=== PATIENT | male | born 1960 | race Caucasian/White ===

== ENCOUNTER → 2024-09-12 | Outpatient (CLI) | payer MEDICARE, SELFPAY ==
[2024-09-12 11:15] LABS: Basophils # (Auto) 0.1 Thou/mm3 (0.0-0.2); Basophils % (Auto) 1 % (0-2.5); Eosinophils # (Auto) 0.3 Thou/mm3 (0.0-0.5); Eosinophils % (Auto) 4 % (0-10); Hematocrit 42.5 % (41.0-53.0); Hemoglobin 13.8 g/dL (13.5-16.0); Immature Granulocytes % (Auto) 0 % (0-0); Immature Granulocytes Auto 0.02 Thou/mm3 (0.00-0.00); Lymphocytes # (Auto) 2.1 Thou/mm3 (1.0-4.8); Lymphocytes % (Auto) 25 % (10-50); Mean Corpuscular HGB Conc 32.5 g/dl (31.0-37.0); Mean Corpuscular Hemoglobin 26.5 pg (25.0-35.0); Mean Corpuscular Volume 82 fL (80-100); Monocytes # (Auto) 0.8 Thou/mm3 (0.0-0.8); Monocytes % (Auto) 10 % (0-12); Neutrophils # (Auto) 4.9 Thou/mm3 (1.8-7.7); Neutrophils % (Auto) 60 % (37-80); Nucleated Red Blood Cell % 0 /100 WBC (0); Platelet Count 286 Thou/mm3 (140-440); RDW Standard Deviation 47.4 fL (35.1-43.9); White Blood Count 8.2 Thou/mm3 (3.8-10.6)
[2024-09-12 11:26] LABS: Glucose Estimated Average 117 mg/dL (80-131); Hemoglobin A1C 5.7 % Hgb (4.8-6.0)
[2024-09-12 11:32] LABS: Alanine Aminotransferase 22 U/L (10-49); Albumin, Serum 4.8 gm/dL (3.4-4.8); Alkaline Phosphatase 165 U/L (46-116); Anion Gap 5 (7-16); Aspartate Amino Transferase 11 U/L (0-34); BUN/Creatinine Ratio 13 Ratio (12-20); Bilirubin,Total 1.4 mg/dL (0.3-1.2); Blood Urea Nitrogen 14 mg/dL (9-23); Calcium 9.5 mg/dL (8.3-10.6); Calcium (Corrected) 9.5 mg/dL (8.5-10.1); Carbon Dioxide 29.8 mMol/L (20.0-31.0); Cardiac Risk Estimate 2.3 RATIO (4.0-6.7); Chloride 102 mMol/L (98-107); Cholesterol 110 mg/dL (132-200); Creatinine (Component) 1.1 mg/dL (0.6-1.3); Globulin 2.4 gm/dL (2.3-3.5); Glucose 116 mg/dL (74-106); HDL Cholesterol 48 mg/dL (40-60); LDL Cholesterol,Calculated 42 mg/dL (0-130); Osmolality,Calculated 275 (275-295); Potassium 3.9 mMol/L (3.4-5.1); Sodium 137 mMol/L (136-145); Total Protein 7.2 gm/dL (5.7-8.2); Triglycerides 102 mg/dL (30-150); eGFR > 60 See Note
[2024-09-12 12:06] LABS: Collection Type, Urine Clean Catch
[2024-09-12 12:31] LABS: Bilirubin,Urine Negative (Negative); Blood,Urine Negative (Negative); Clarity,Urine Clear (Clear/Hazy); Color,Urine Yellow (Lt Yel-Yel); Glucose, Urine 4+ (Negative); Ketones,Urine Negative (Negative); Leukocyte Esterase,Urine Negative (Negative); Nitrite,Urine Negative (Negative); Protein,Urine Trace (Neg - Trace); RBC,Urine 4 /hpf (0-3); Specific Gravity,Urine 1.037 (1.001-1.035); Squamous Epithelial Cell,Urine < 1 /hpf (0-5); Urobilinogen,Urine Negative mg/dL (0.0-1.0); WBC,Urine 2 /hpf (0-5)
[2024-09-12 12:38] LABS: Creatinine MALB Rnd Ur 148 mg/dL (30-125); Microalbumin Creat Ratio 5 mg/gCrea (<30); Microalbumin, Random Urine 7 mg/L (0-300)
== END | disposition home or self-care (01) ==
PROVIDERS: PCP Internal Medicine; Referring Provider Internal Medicine; Visit Provider Internal Medicine
DX: E11.9 Type 2 diabetes mellitus without complications (principal); I10 Essential (primary) hypertension; E78.5 Hyperlipidemia, unspecified
CPT/HCPCS: 36415; 80053; 80061; 81001; 82043; 82570; 83036; 85025

== ENCOUNTER → 2024-10-25 | Outpatient (CLI) | payer MEDICARE, SELFPAY ==
--- NOTE | 2024-10-25 09:06 | EKG_ITS ---
[facility], [place] Test Date: 2024-10-25 Pat Name: SHEREEN LEMUS Department: Room: - Gender: Male [employer]ambling [employer]er: SONDRA : 1960 Requested By: Dexter Hirsch Order Number: [id number] Reading MD: Dexter Hirsch Measurements Intervals [place] Rate: 66 P: 21 ID: [id number] QRS: -60 QRSD: 128 T: 55 QT: 435 QTc: 457 Interpretive Statements SINUS RHYTHM RIGHT BUNDLE BRANCH BLOCK LEFT ANTERIOR FASCICULAR BLOCK POSSIBLE SEPTAL MYOCARDIAL INFARCTION , PROBABLY OLD Compared to ECG 11/11/2023 14:16:59 Right bundle-branch block now present Left anterior fascicular block now present Myocardial infarct finding now present Intraventricular conduction delay no longer present /[id number]
[2024-10-25 09:44] LABS: Glucose,Fasting 133 mg/dL (74-106)
== END | disposition home or self-care (01) ==
PROVIDERS: PCP Internal Medicine; Referring Provider Ophthalmology; Visit Provider Ophthalmology
DX: Z01.818 Encounter for other preprocedural examination (principal)
CPT/HCPCS: 36415; 82947; 93005

== ENCOUNTER → 2024-12-21 | Outpatient (CLI) | payer MEDICARE, SELFPAY ==
[2024-12-21 16:18] LABS: Prostate Specific Antigen 1.98 ng/mL (0-4.00)
== END | disposition home or self-care (01) ==
LOC: COPL 15:21
PROVIDERS: PCP Internal Medicine; Referring Provider Urology; Visit Provider Urology
DX: N40.1 Benign prostatic hyperplasia with lower urinary tract symptoms (principal)
CPT/HCPCS: 36415; 84153

== ENCOUNTER → 2024-12-28 | Outpatient (BNVA) | payer MEDICARE, SELFPAY | END | disposition home or self-care (01) | PROVIDERS: PCP Internal Medicine; Referring Provider Internal Medicine; Visit Provider Urology | DX: N40.0 Benign prostatic hyperplasia without lower urinary tract symptoms (principal); E66.9 Obesity, unspecified; Z68.36 Body mass index [BMI] 36.0-36.9, adult; I10 Essential (primary) hypertension; E78.5 Hyperlipidemia, unspecified; N52.9 Male erectile dysfunction, unspecified; Z87.440 Personal history of urinary (tract) infections; E11.9 Type 2 diabetes mellitus without complications; E03.9 Hypothyroidism, unspecified | CPT/HCPCS: 81003; 99212; G0463 ==

== ENCOUNTER → 2025-02-08 | Outpatient (CLI) | payer MEDICARE, SELFPAY ==
[2025-02-08 12:13] LABS: Eosinophils % (Auto) 4 % (0-10); Hemoglobin 16.1 g/dL (13.5-16.0); Lymphocytes % (Auto) 16 % (10-50); Mean Corpuscular Hemoglobin 29.3 pg (25.0-35.0); Mean Corpuscular Volume 84 fL (80-100); Monocytes % (Auto) 8 % (0-12); Neutrophils % (Auto) 71 % (37-80); Platelet Count 265 Thou/mm3 (140-440); RDW Standard Deviation 43.4 fL (35.1-43.9); White Blood Count 8.7 Thou/mm3 (3.8-10.6)
[2025-02-08 12:14] LABS: Basophils # (Auto) 0.1 Thou/mm3 (0.0-0.2); Basophils % (Auto) 1 % (0-2.5); Eosinophils # (Auto) 0.3 Thou/mm3 (0.0-0.5); Immature Granulocytes % (Auto) 0 % (0-0); Immature Granulocytes Auto 0.03 Thou/mm3 (0.00-0.00); Lymphocytes # (Auto) 1.4 Thou/mm3 (1.0-4.8); Monocytes # (Auto) 0.7 Thou/mm3 (0.0-0.8); Neutrophils # (Auto) 6.2 Thou/mm3 (1.8-7.7); Nucleated Red Blood Cell % 0 /100 WBC (0)
[2025-02-08 12:26] LABS: Glucose Estimated Average 123 mg/dL (80-131); Hemoglobin A1C 5.9 % Hgb (4.8-6.0)
[2025-02-08 12:29] LABS: Alanine Aminotransferase 23 U/L (10-49); Albumin, Serum 4.6 gm/dL (3.4-4.8); Albumin/Globulin Ratio 1.8 (1.2-2.2); Alkaline Phosphatase 169 U/L (46-116); Anion Gap 9 (7-16); Aspartate Amino Transferase 19 U/L (0-34); BUN/Creatinine Ratio 15 Ratio (12-20); Bilirubin,Total 1.8 mg/dL (0.3-1.2); Blood Urea Nitrogen 15 mg/dL (9-23); Calcium 9.5 mg/dL (8.3-10.6); Calcium (Corrected) 9.5 mg/dL (8.5-10.1); Carbon Dioxide 27.2 mMol/L (20.0-31.0); Cardiac Risk Estimate 2.7 RATIO (4.0-6.7); Chloride 106 mMol/L (98-107); Cholesterol 120 mg/dL (132-200); Globulin 2.5 gm/dL (2.3-3.5); Glucose 146 mg/dL (74-106); HDL Cholesterol 44 mg/dL (40-60); LDL Cholesterol,Calculated 52 mg/dL (0-130); Osmolality,Calculated 286 (275-295); Potassium 3.9 mMol/L (3.4-5.1); Sodium 142 mMol/L (136-145); Total Protein 7.1 gm/dL (5.7-8.2); Triglycerides 122 mg/dL (30-150); eGFR > 60 See Note
[2025-02-08 12:32] LABS: Creatinine MALB Rnd Ur 136 mg/dL (30-125); Microalbumin Creat Ratio 19 mg/gCrea (<30); Microalbumin, Random Urine 26 mg/L (0-300)
== END | disposition home or self-care (01) ==
LOC: COPL 11:09
PROVIDERS: PCP Internal Medicine; Referring Provider Nurse Practitioner Family; Visit Provider Nurse Practitioner Family
DX: E11.65 Type 2 diabetes mellitus with hyperglycemia (principal)
CPT/HCPCS: 36415; 80053; 80061; 82043; 82570; 83036; 85025

== ENCOUNTER → 2025-02-25 | Outpatient (CLI) | payer MEDICARE, SELFPAY ==
[2025-03-04 07:32] LABS: Gamma Glutamyl Transpeptidase* 92 U/L (3-70)
== END | disposition home or self-care (01) ==
LOC: COPL 12:01
PROVIDERS: PCP Internal Medicine; Referring Provider Nurse Practitioner Family; Visit Provider Nurse Practitioner Family
DX: R74.8 Abnormal levels of other serum enzymes (principal)
CPT/HCPCS: 36415; 82977

== ENCOUNTER → 2025-04-11 | Outpatient (CLI) | payer MEDICARE, SELFPAY ==
[2025-04-11 13:21] LABS: Anion Gap 7 (7-16); BUN/Creatinine Ratio 10 Ratio (12-20); Blood Urea Nitrogen 11 mg/dL (9-23); Calcium 9.3 mg/dL (8.3-10.6); Carbon Dioxide 29.2 mMol/L (20.0-31.0); Chloride 105 mMol/L (98-107); Creatinine (Component) 1.1 mg/dL (0.6-1.3); Glucose 203 mg/dL (74-106); Osmolality,Calculated 286 (275-295); Potassium 4.4 mMol/L (3.4-5.1); Sodium 141 mMol/L (136-145); eGFR > 60 See Note
== END | disposition home or self-care (01) ==
LOC: COPL 12:30
PROVIDERS: PCP Internal Medicine; Referring Provider Internal Medicine; Visit Provider Internal Medicine
DX: I25.10 Atherosclerotic heart disease of native coronary artery without angina pectoris (principal); I48.91 Unspecified atrial fibrillation
CPT/HCPCS: 36415; 80048

== ENCOUNTER → 2025-04-12 | Outpatient (CLI) | payer MEDICARE, SELFPAY ==
--- NOTE | 2025-04-12 12:49 | XR_ITS ---
Examination: CT chest with intravenous contrast CT chest without intravenous contrast 2-D reconstructions Date and time of exam:April 12, 2025 1303 hours INDICATIONS: Shortness of breath several weeks CTDI:vol (mGy) 4.9 DLP: (mGycm) 1636 Technique: Multiple axial sections of the thorax have been obtained. 3 mm slice thickness, from the hemidiaphragms to above the apices of the lungs. Mediastinal and lung density settings have been obtained. Intravenous contrast administered 60 cc Isovue-370. Noncontrast images have also been obtained. 2-D sagittal coronal images obtained. Low dose protocols were performed. One or more of the following dose reduction techniques were used; automated exposure control, adjustment of the mA and/or KV according to patient size, use of iterative reconstruction technique. Findings: No thoracic cardiac aneurysm dilatation or dissection Pulmonary artery opacification is poor, no pulmonary artery filling defects Mild enlargement left ventricle No paratracheal tracheobronchial or bronchopulmonary adenopathy Mild vascular congestion No lobar pneumonia or pulmonary edema No focal liver or splenic lesion Absent gallbladder No pancreatic mass IMPRESSION: Negative for pulmonary artery emboli Mild vascular congestion No lobar pneumonia or pulmonary edema
== END | disposition home or self-care (01) ==
LOC: CDIM 12:39
PROVIDERS: PCP Internal Medicine; Referring Provider Internal Medicine; Visit Provider Internal Medicine
DX: R09.89 Other specified symptoms and signs involving the circulatory and respiratory systems (principal)
CPT/HCPCS: 71270; A4649; Q9967

== ENCOUNTER → 2025-04-26 | Outpatient (CLI) | payer MEDICARE, SELFPAY ==
[2025-04-26 11:08] LABS: Glucose,Fasting 148 mg/dL (74-106)
== END | disposition home or self-care (01) ==
LOC: COPL 09:14
PROVIDERS: PCP Internal Medicine; Referring Provider Student in an Organized Health Care Education/Training Program; Visit Provider Student in an Organized Health Care Education/Training Program
DX: Z01.818 Encounter for other preprocedural examination (principal)
CPT/HCPCS: 36415; 82947

== ENCOUNTER → 2025-06-18 | Outpatient (CLI) | payer MEDICARE, SELFPAY ==
[2025-06-18 14:32] LABS: Basophils # (Auto) 0.1 Thou/mm3 (0.0-0.2); Basophils % (Auto) 1 % (0-2.5); Eosinophils # (Auto) 0.4 Thou/mm3 (0.0-0.5); Eosinophils % (Auto) 4 % (0-10); Hematocrit 47.0 % (41.0-53.0); Hemoglobin 16.1 g/dL (13.5-16.0); Immature Granulocytes Auto 0.02 Thou/mm3 (0.00-0.00); Lymphocytes # (Auto) 1.8 Thou/mm3 (1.0-4.8); Lymphocytes % (Auto) 21 % (10-50); Mean Corpuscular HGB Conc 34.3 g/dl (31.0-37.0); Mean Corpuscular Hemoglobin 31.3 pg (25.0-35.0); Mean Corpuscular Volume 91 fL (80-100); Monocytes # (Auto) 0.9 Thou/mm3 (0.0-0.8); Monocytes % (Auto) 10 % (0-12); Neutrophils # (Auto) 5.3 Thou/mm3 (1.8-7.7); Neutrophils % (Auto) 64 % (37-80); Nucleated Red Blood Cell # 0.00 Thou/mm3 (0.00-0.00); Nucleated Red Blood Cell % 0 /100 WBC (0); Platelet Count 220 Thou/mm3 (140-440); RDW Standard Deviation 45.2 fL (35.1-43.9); Red Blood Count 5.14 Miln/mm3 (4.50-5.90); White Blood Count 8.4 Thou/mm3 (3.8-10.6)
[2025-06-18 14:43] LABS: Glucose Estimated Average 120 mg/dL (80-131); Hemoglobin A1C 5.8 % Hgb (4.8-6.0)
[2025-06-18 15:02] LABS: Alanine Aminotransferase 23 U/L (10-49); Albumin, Serum 4.6 gm/dL (3.4-4.8); Albumin/Globulin Ratio 2.2 (1.2-2.2); Alkaline Phosphatase 126 U/L (46-116); Anion Gap 7 (7-16); Aspartate Amino Transferase 21 U/L (0-34); BUN/Creatinine Ratio 11 Ratio (12-20); Bilirubin,Total 1.2 mg/dL (0.3-1.2); Blood Urea Nitrogen 12 mg/dL (9-23); Calcium 10.4 mg/dL (8.3-10.6); Calcium (Corrected) 10.4 mg/dL (8.5-10.1); Carbon Dioxide 31.6 mMol/L (20.0-31.0); Cardiac Risk Estimate 2.3 RATIO (4.0-6.7); Chloride 108 mMol/L (98-107); Cholesterol 112 mg/dL (132-200); Creatinine (Component) 1.1 mg/dL (0.6-1.3); Globulin 2.1 gm/dL (2.3-3.5); Glucose 102 mg/dL (74-106); HDL Cholesterol 48 mg/dL (40-60); LDL Cholesterol,Calculated 39 mg/dL (0-130); Osmolality,Calculated 292 (275-295); Potassium 4.1 mMol/L (3.4-5.1); Sodium 147 mMol/L (136-145); Total Protein 6.7 gm/dL (5.7-8.2); Triglycerides 124 mg/dL (30-150); eGFR > 60 See Note
[2025-06-18 16:11] LABS: Collection Type, Urine Clean Catch
[2025-06-18 16:37] LABS: Bilirubin,Urine Negative (Negative); Blood,Urine Negative (Negative); Clarity,Urine Clear (Clear/Hazy); Color,Urine Yellow (Lt Yel-Yel); Glucose, Urine 4+ (Negative); Ketones,Urine Negative (Negative); Leukocyte Esterase,Urine Negative (Negative); Nitrite,Urine Negative (Negative); PH,Urine 6.5 (5.0-7.0); Protein,Urine Negative (Neg - Trace); RBC,Urine 8 /hpf (0-3); Specific Gravity,Urine 1.036 (1.001-1.035); Squamous Epithelial Cell,Urine 2 /hpf (0-5); Urobilinogen,Urine Negative mg/dL (0.0-1.0); WBC,Urine 2 /hpf (0-5)
== END | disposition home or self-care (01) ==
LOC: COPL 13:31
PROVIDERS: PCP Internal Medicine; Referring Provider Internal Medicine; Visit Provider Internal Medicine
DX: E11.9 Type 2 diabetes mellitus without complications (principal); E78.5 Hyperlipidemia, unspecified; I10 Essential (primary) hypertension
CPT/HCPCS: 36415; 80053; 80061; 81001; 83036; 85025